=== PATIENT | male | born 1995 | race Two or more races ===

== ENCOUNTER 2024-09-08 06:01 | Emergency (ER) | payer MEDICAID ==
[~2024-09-08] VITALS: Ht 175.3 cm; Wt 81.2 kg
[~2024-09-08 06:01] MED LIST: AMOX875T4 PO; IBUP-1456 PO
[2024-09-08] MEDS: SODIUM CHLORIDE 0.9% 1,000 ML IV ONE (06:42)
[2024-09-08] MEDS: methylPREDNISolone SOD SUCC 40 MG/ML VL IV ONE (06:48)
[2024-09-08] MEDS: diphenhdrAMINE HCL 50 MG/1 ML VL IV ONE (06:51)
[2024-09-08] MEDS: diphenhdrAMINE HCL 50 MG/1 ML VL ONE (06:52)
--- NOTE | 2024-09-08 07:14 | ED.PDOC ---
History of Present Illness HPI Comments 28-year-old male with no reported PMHx or PSHx presents with a chief complaint of allergic reaction x 2 days. Patient states that he ate meat x 2 days ago and then had onset of his symptoms. Patient is experiencing rash and has facial swelling, mostly localized to his eyes. Patient mentions that he is able to see, able to swallow, and has no throat pain. Patient is sating at 97% on room air. Patient denies any SOB, chest pain, or headache. No other symptoms or modifying factors present at this time. Chief Complaint: Allergic Reaction Time Seen by MD: 06:20 Primary Care Provider: UNKNOWN Reviewed Notes: Medications, Allergies Allergies: Coded Allergies: NO KNOWN ALLERGIES (Unverified , 02/19/24) Home Meds Active Scripts Pantoprazole Sodium Sesquihydr (Protonix) 40 Mg Tab, 40 MG PO DAILY for 5 Days, #5 TAB Prov:KAYLEEN JONES MD 09/08/24 Prednisone (Prednisone) 10 Mg Tab, 10 MG PO DAILY for 5 Days, #5 MG Prov:KAYLEEN JONES MD 09/08/24 Amoxicillin & Pot Clavulanate (Amoxicillin/Potassium Cla) 875 Mg Tab, 1 TAB PO BID for 7 Days, #14 TAB 0 Refills Prov:RITA CALDERON 02/19/24 Ibuprofen (Ibuprofen) 800 Mg Tab, 1 TAB PO TID PRN, #30 TAB 0 Refills Prov:RITA CALDERON 02/19/24 Information Source: Patient Mode of Arrival: Ambulatory Severity: Moderate Timing: Days Duration: Since onset Prehospital treatment: None Past Medical History PAST MEDICAL HISTORY: Denies Surgical History: Denies all surgeries Family History Family History: Unknown Social History Smoker: Non-Smoker Alcohol: Denies ETOH Use Drugs: Denies Drug Use Lives In: Home Constitutional: denies: chills, diaphoresis, fatigue, fever, malaise, sweats, weakness, others EENTM: reports: others (FACIAL SWELLING); denies: blurred vision, double vision, ear bleeding, ear discharge, ear drainage, ear pain, ear ringing, eye pain, eye redness, hearing loss, mouth pain, mouth swelling, nasal discharge, nose bleeding, nose congestion, nose pain, photophobia, tearing, throat pain, throat swelling, voice changes Respiratory: denies: cough, hemoptysis, orthopnea, SOB at rest, shortness of breath, SOB with excertion, stridor, wheezing, others Cardiovascular: denies: chest pain, dizzy spells, diaphoresis, Dyspnea on exertion, edema, irregular heart beat, left arm pain, lightheadedness, palpitations, PND, syncope, others Gastrointestinal: denies: abdomen distended, abdominal pain, blood streaked bowels, constipated, diarrhea, dysphagia, difficulty swallowing, hematemesis, melena, nausea, poor appetite, poor fluid intake, rectal bleeding, rectal pain, vomiting, others Genitourinary: denies: burning, dysuria, flank pain, frequency, hematuria, incontinence, penile discharge, penile sore, pain, testicle pain, testicle swelling, urgency, others Neurological: denies: dizziness, fainting, headache, left sided numbness, left sided weakness, numbness, paresthesia, pre-existing deficit, right sided numbness, right sided weakness, seizure, speech problems, tingling, tremors, weakness, others Musculoskeletal: denies: back pain, gout, joint pain, joint swelling, muscle pain, muscle stiffness, neck pain, others Integumetry: reports: rash; denies: bruises, change in color, change in hair/nails, dryness, laceration, lesions, lumps, wounds, others Allergic/Immunocompromised: denies: Difficulty Healing, Frequent Infections, Hives, Itching, others Hematologic/Lymphatic: denies: anemia, blood clots, easy bleeding, easy bruising, swollen glands, others Endocrine: denies: excessive hunger, excessive sweating, excessive thirst, excessive urination, flushing, intolerance to cold, intolerance to heat, unexplained weight gain, unexplained weight loss, others Psychiatric: denies: anxiety, bipolar disorder, depression, hopeless, panic disorder, schizophrenia, sleepless, suicidal, others All Other Systems: Reviewed and Negative Physical Exam General Appearance: Moderate Distress, Normal HEENT: Normal ENT Inspection, Pharynx Normal, TMs Normal, Other (Puffiness of the face with the tongue sparing) Neck: Full Range of Motion, Non-Tender, Normal, Normal Inspection Respiratory: Chest Non-Tender, Lungs Clear, No Accessory Muscle Use, No Respiratory Distress, Normal Breath Sounds Cardiovascular: No Edema, No JVD, No Murmur, No Gallop, Normal Peripheral Pulses, Regular Rate/Rhythm Breast Exam: Deferred Gastrointestinal: No Organomegaly, Non Tender, No Pulsatile Mass, Normal Bowel Sounds, Soft Genitalia: Deferred Pelvic: Deferred Rectal: Deferred Extremities: No calf tenderness, Normal capillary refill, Normal inspection, Normal range of motion, Non-tender, No pedal edema Musculoskeletal : Apperance: Normal Neurologic: Alert, station installer II-XII nml as Tested, No Motor Deficits, Normal Affect, Normal Mood, No Sensory Deficits Cerebellar Function: Normal Reflexes: Normal Skin: Dry, Normal Color, Warm Peripheral Pulses: 3+ Radial (R), 3+ Radial (L) Lymphatic: No Adenopathy Was a procedure done? Was a procedure done?: No Differential Dx Considerations may include: Allergic reaction Electrolyte imbalance X-Ray, Labs, Meds, VS Vital Signs Date Time Temp Pulse Resp B/P (MAP) Pulse Ox O2 Delivery O2 Flow Rate FiO2 09/08/24 08:08 Room Air* 0 21 09/08/24 06:10 98.2 70 18 106/66 (79) 97 98.2 09/08/24 06:10 18 97 Room Air* 0 21 Current Medications Medications (Trade) Dose Ordered Sig/Alem Route Start Time Stop Time Status Last Admin Methylprednisolone Sodium Succinate (Solu Medrol) 40 mg ONCE ONCE IV 09/08/24 06:45 09/08/24 06:46 DC 09/08/24 06:48 Sodium Chloride 1,000 ml @ 1,000 mls/hr Q1H ONCE IV 09/08/24 06:45 09/08/24 07:44 DC 09/08/24 06:42 Diphenhydramine HCl (Benadryl Injection) 50 mg ONCE ONCE IV 09/08/24 07:00 09/08/24 07:01 DC 09/08/24 06:51 Patient alert. Came in because of puffiness of the face. No tongue swelling. Completing sentences. Vitals stable. No sign of any distress. No leg swelling. No shortness a breath. Able to swallow without difficulty. Isolated upper facial swelling. Was given Solu-Medrol. Was given Benadryl. Reviewed his history pain Explained to the patient that he will be discharged with prednisolone to monitor the swelling. He was told to follow up with his primary care physician. Was told to come back if there is any problem. Time of 1ST Reevaluation: 06:20 (EXPLAINED TO THE PATIENT THAT THEY MAY BE STAYING WITH US IN THE HOSPITAL, BUT IF STABLE FOR DISCHARGE, THEY WILL BE NOTIFIED AND SENT HOME. ) Reevaluation 1ST: Improved Time of 2ND Reevaluation: 06:50 Reevaluation 2ND: Improved Patient Education/Counseling: Diagnosis, Treatment Family Education/Counseling: No Family Present Departure 1 Departure Time of Disposition: 07:37 Impression: Primary Impression: Allergic reaction Qualified Codes: T78.40XA - Allergy, unspecified, initial encounter Disposition: HOME / SELF CARE / HOMELESS Condition: Good e-Prescriptions Pantoprazole Sodium Sesquihydr (Protonix) 40 Mg Tab 40 MG PO DAILY for 5 Days, #5 TAB Prov: KAYLEEN JONES MD 09/08/24 Prednisone (Prednisone) 10 Mg Tab 10 MG PO DAILY for 5 Days, #5 MG Prov: KAYLEEN JONES MD 09/08/24 Discharged With: Self Comments 09:00 - SPOKE WITH PATIENT REGARDING RESULTS AND THAT THEY WILL BE DISCHARGED HOME. PATIENT IS IN AGREEMENT WITH PLAN OF CARE. ARTURO MASCORRO TRANSLATED IRANIAN WHEN SPEAKING TO THE PATIENT. Critical Care Note Critical Care Time?: No Stability Stability form required: No Heart Score Heart Score: Heart Score Response (Comments) Value History N/A 0 EKG N/A 0 Age N/A 0 Risk Factors N/A 0 Troponin N/A 0 Total 0 I personally scribed for KAYLEEN JONES MD ([email or web address]) on 09/08/24 at 07:14. Electronically submitted by Daquan Disla ([email or web address]). I personally scribed for KAYLEEN JONES MD ([email or web address]) on 09/08/24 at 09:02. Electronically submitted by Daquan Disla ([email or web address]). I personally scribed for KAYLEEN JONES MD ([email or web address]) on 09/08/24 at 09:04. Electronically submitted by Daquan Disla ([email or web address]). KAYLEEN JONES MD September 08, 2024 07:14
[2024-09-08] MEDS ORDERED: PANT40TA2 PO (07:50)
[2024-09-08] MEDS ORDERED: PRED10TA PO (07:50)
[2024-09-08 09:04] VITALS: BP 114/75; PULSE 78; RESP 18; TEMP 98.1; O2SAT 93
== END 2024-09-08 09:12 | disposition home or self-care (01) ==
LOC: ER 06:01
DX: R21 Rash and other nonspecific skin eruption (principal); T78.1XXA Other adverse food reactions, not elsewhere classified, initial encounter; R22.0 Localized swelling, mass and lump, head; Z79.899 Other long term (current) drug therapy; Z79.52 Long term (current) use of systemic steroids; X58.XXXA Exposure to other specified factors, initial encounter
CPT/HCPCS: 96374; 96375; 99284; J1200; J2919